=== PATIENT | female | born 1980 | race Two or more races ===

== ENCOUNTER 2016-07-22 05:07 | Emergency (ER) | payer OTHER ==
[2016-07-22] MEDS ORDERED: AMOX TR/POT CLAV 875MG/125MG TABLETS (FP) PO ONE (06:02)
[2016-07-22] MEDS ORDERED: DEXAMETHASONE SOD PHOSPHATE 10 MG/1 ML VIAL IM ONE (06:03)
[2016-07-22] MEDS ORDERED: IBUPROFEN 400 MG TABLET (FP) PO ONE (06:03)
[2016-07-22] MEDS ORDERED: OFLOXACIN 0.3% OPHTHALMIC SOLUTION 5 ML BOTTLE OU ONE (06:05)
[2016-07-22 06:10] VITALS: BP 137/100; PULSE 82; TEMP 98; BMI 35.9
--- NOTE | 2016-07-22 06:12 | PDOC ---
History of Present Illness - General Chief Complaint: Sore Throat Stated Complaint: PINK EYE, EAR PAIN, SORE THROAT Time Seen by Provider: 07/22/16 05:48 History Source: Patient Exam Limitations: No Limitations - History of Present Illness Initial Comments: 07/22/16 06:07 36yo Female patient presents to ED c/o bilateral ear pain, throat pain, pink eye , and fever which began Tuesday. Patient states fever high as 104.0, took Nyquil with minimal relief. Denies any other complaints at this time. Timing/Duration: other (3 days) Severity: moderate Modifying Factors: improves with: medication Associated Symptoms: denies: denies symptoms, chest pain, cough, diaphoresis, fever/chills, headaches, loss of appetite, malaise, nausea/vomiting, rash, seizure, shortness of breath, syncope, weakness, other Past History - Travel Traveled outside of the country in the last 30 days: No Close contact w/someone who was outside of country & ill: No - Past Medical History Allergies/Adverse Reactions: Allergies Allergy/AdvReac Type Severity Reaction Status Date / Time No Known Allergies Allergy Verified 07/17/15 10:26 Home Medications: Ambulatory Orders Amoxicillin/Potassium Clav [Augmentin 875-125 Tablet] 1 each PO BID #20 tablet 07/22/16 Ibuprofen [Motrin -] 600 mg PO Q6H PRN #20 tablet 07/22/16 Tramadol HCl 50 mg PO Q6H PRN #12 tablet MDD 4 tabs 07/22/16 - Psycho/Social/Smoking Cessation Hx Anxiety: No Suicidal Ideation: No Smoking Status: Yes Smoking History: Current every day smoker Number of Cigarettes Smoked Daily: 3 Cigars Per Day: 0 Hx Alcohol Use: No Drug/Substance Use Hx: No Substance Use Type: None Review of Systems - Review of Systems Able to Perform ROS?: Yes Is the patient limited Yoruba proficient: No Constitutional: Yes: Chills, Fever HEENTM: Yes: Ear Pain, Nose Congestion, Throat Pain, Other ([place]) Respiratory: No: Cough, Shortness of Breath Cardiac (ROS): No: Chest Pain ABD/GI: No: Diarrhea, Nausea, Vomiting : No: Burning, Dysuria, Flank Pain, Hematuria Musculoskeletal: No: Back Pain Integumentary: No: Pruritus, Rash Neurological: No: Headache, Numbness, Tingling All Other Systems: Reviewed and Negative *Physical Exam - Physical Exam General Appearance: Yes: Nourished, Appropriately Dressed, Moderate Distress HEENT: positive: EOMI, SAY, Normal Voice, Symmetrical, Pharynx Normal, TM Bulging, TM Erythema, Other (Injected Conjunctiva bilaterally w/o discharge or drainage.) Neck: positive: Trachea midline, Supple Respiratory/Chest: positive: Lungs Clear, Normal Breath Sounds Cardiovascular: positive: Regular Rhythm, Regular Rate Gastrointestinal/Abdominal: positive: Normal Bowel Sounds, Soft Musculoskeletal: positive: Normal Inspection. 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, Fully Oriented, Alert, Normal Mood/ Affect, Normal Response *DC/Admit/Observation/Transfer Diagnosis at time of Disposition: Otitis media Qualifiers: Otitis media type: serous Laterality: bilateral Chronicity: acute Recurrence: not specified Qualified Code(s): H65.03 - Acute serous otitis media, bilateral Conjunctivitis Qualifiers: Conjunctivitis type: serous Laterality: bilateral Qualified Code(s): H10.233 - Serous conjunctivitis, except viral, bilateral Pharyngitis Qualifiers: Pharyngitis/tonsillitis etiology: other specified organisms Qualified Code(s): J02.8 - Acute pharyngitis due to other specified organisms - Discharge Dispostion Disposition: HOME Condition at time of disposition: Stable Admit: No - Prescriptions Prescriptions: Amoxicillin/Potassium Clav [Augmentin 875-125 Tablet] 1 each PO BID #20 tablet Ibuprofen [Motrin -] 600 mg PO Q6H PRN #20 tablet PRN Reason: Mild Pain Tramadol HCl 50 mg PO Q6H PRN #12 tablet MDD 4 tabs PRN Reason: Severe Pain - Patient Instructions Printed Discharge Instructions: DI for Pharyngitis/Tonsillopharyngitis -- Adult , Ear Infections (Alternative Therapy), Middle Ear Infection, DI for Conjunctivitis Additional Instructions: Follow up with your primary care provider. Call to schedule appointment. Administer eye drops to both eyes, 2 drops to both eyes every 4 hours while awake x 2 days then 1 drop to both eyes every 4 hours while awake x 3 days. Do not share towels or washcloths. Motrin for fever, pain, and Tramadol for pain not relieved by Motrin. Take medications as prescribed. Return if symptoms worsen or any concerns for further evaluation. Print Language: GREENLANDIC
[2016-07-22] MEDS ORDERED: DEXAMETHASONE SOD PHOSPHATE 10 MG/1 ML VIAL ONE (06:16)
[2016-07-22] MEDS ORDERED: AMOX TR/POT CLAV 875MG/125MG TABLETS (FP) ONE (06:16)
[2016-07-22] MEDS ORDERED: IBUPROFEN 600 MG TABLET (FP) PO ONE (06:17)
[2016-07-22] MEDS ORDERED: CIPROFLOXACIN HCL 0.3% OPHTH 2.5ML BOTTLE ONE (06:24)
[2016-07-22] MEDS ORDERED: CIPROFLOXACIN 0.3% EYE DROPS 5 ML BOTTLE OU SCH (10:00)
== END 2016-07-22 06:30 | disposition home or self-care (01) ==
LOC: JER 05:07
DX: J02.9 Acute pharyngitis, unspecified (principal); H65.03 Acute serous otitis media, bilateral; H10.33 Unspecified acute conjunctivitis, bilateral
CPT/HCPCS: 99281-25

== ENCOUNTER 2016-10-16 09:48 | Emergency (ER) | payer OTHER ==
[2016-10-16 09:52] VITALS: BP 129/79; PULSE 88; TEMP 97.8; BMI 37.0
--- NOTE | 2016-10-16 09:57 | PDOC ---
History of Present Illness - General Chief Complaint: Sore Throat Stated Complaint: SORE THROAT Time Seen by Provider: 10/16/16 09:55 History Source: Patient Exam Limitations: No Limitations - History of Present Illness Initial Comments: CHIEF COMPLAINT: 36 y/o afebrile female with no significant PMH c/o sore throat with painful swallowing x 2 days. HISTORY OF PRESENT ILLNESS: The patient denies fever, chills, cough, runny nose , n/v/d, CP, SOB, abd pain. SHe has no sick contacts. She has been taking excedrin for her symptoms with little relief. Vital signs on arrival are within normal limits. REVIEW OF SYSTEMS: GENERAL/CONSTITUTIONAL: No fever/chills. No weakness. No weight change. HEAD, EYES, EARS, NOSE AND THROAT: No change in vision. No ear pain or discharge. +sore throat. CARDIOVASCULAR: No chest pain or shortness of breath. RESPIRATORY: No cough, wheezing, or hemoptysis. GASTROINTESTINAL: No abd pain, nausea, vomiting, diarrhea. GENITOURINARY: No dysuria, frequency, or change in urination. MUSCULOSKELETAL: No joint or muscle swelling or pain. No neck or back pain. SKIN: No rash or easy bruising. NEUROLOGIC: No headache, vertigo, loss of consciousness, or loss of sensation. . PHYSICAL EXAM: GENERAL: The patient is awake, alert, and fully oriented, in no acute distress. She appears uncomfortable. She is handling her own oral secretions without difficulty. HEAD: Normal with no signs of trauma. ENT: Pupils equal, round and reactive to light, extraocular movements intact, sclera anicteric, conjunctiva clear. Posterior pharyngeal erythema without tonsilar edema or exudate. Uvula midline. No soft/hard palate deformities. tender anterior cervical lymphadenopathy. LUNGS: Clear to auscultation bilaterally. Normal excursion. No respiratory distress or use of accessory muscles. CV: RRR, S1/S2, no MRG. Cap refill < 2 sec. ABDOMEN: Soft, non-distended, non-tender even to deep palpation, no hepatomegaly or splenomegaly, no masses. EXTREMITIES: Normal range of motion, no edema. NEUROLOGICAL: Normal speech, normal gait. CN II-XII grossly intact. PSYCH: Normal mood, normal affect. SKIN: Warm, dry, normal turgor, no rashes or lesions noted. Past History - Past Medical History Allergies/Adverse Reactions: Allergies Allergy/AdvReac Type Severity Reaction Status Date / Time No Known Allergies Allergy Verified 10/16/16 09:49 Home Medications: Ambulatory Orders NK [No Known Home Medication] 10/16/16 Other medical history: NONE - Psycho/Social/Smoking Cessation Hx Anxiety: No Suicidal Ideation: No Smoking Status: Yes Smoking History: Never smoked Have you smoked in the past 12 months: No Number of Cigarettes Smoked Daily: 3 Cigars Per Day: 0 Information on smoking cessation initiated: No Hx Alcohol Use: No Drug/Substance Use Hx: No Substance Use Type: None *Physical Exam - Vital Signs Last Vital Signs Temp Pulse Resp BP Pulse Ox 97.8 F 88 18 129/79 100 10/16/16 09:50 10/16/16 09:50 10/16/16 09:50 10/16/16 09:50 10/16/16 09:50 Medical Decision Making - Medical Decision Making A/P: 36 y/o female with sore throat and painful swallowing x 2 days. Plan is as follows: 1. Rapid strep 2. hcg hcg - negative IM Toradol Rapid Strep - negative Will discharge to home with dx of viral pharyngitis. Instructed the patient to take 600mg of OTC motrin every 6 hours for fever/sore throat, gargle with warm salt water, drink plenty of fluids and eat soft diet until symptoms improve. Instructed her to f/u with her doctor on Tuesday and return to the ER with any worsening or concerning symptoms. The patient verbalizes understanding of all instructions, has no further questions and is awaiting discharge. *DC/Admit/Observation/Transfer Diagnosis at time of Disposition: Pharyngitis Qualifiers: Pharyngitis/tonsillitis etiology: unspecified etiology Qualified Code(s): J02.9 - Acute pharyngitis, unspecified - Discharge Dispostion Disposition: HOME Condition at time of disposition: Good - Referrals Referrals: Mary Ellen Langley [Primary Care Provider] - Call tomorrow - Patient Instructions Printed Discharge Instructions: DI for Viral Pharyngitis Additional Instructions: Discharge Instructions: -Take 600mg of Over the Counter Ibuprofen every 6 hours for fever/throat pain -Gargle with warm salt water multiple times per day -Drink plenty of fluids -Eat soft foods until your throat pain improves -Call your doctor on Tuesday for follow up appointment -Return to the ER with any worsening or concerning symptoms
[2016-10-16] MEDS ORDERED: KETOROLAC TROMETHAMINE 60 MG/2 ML VIAL IM ONE (10:53)
[2016-10-16] MEDS ORDERED: KETOROLAC TROMETHAMINE 60 MG/2 ML VIAL ONE (11:06)
== END 2016-10-16 11:09 | disposition home or self-care (01) ==
LOC: JERFT 09:48
PROC: 3E0233Z Introduction of Anti-inflammatory into Muscle, Percutaneous Approach (ICD-10-PCS; principal; 2016-10-16)
DX: J02.9 Acute pharyngitis, unspecified (principal)
CPT/HCPCS: 84703; 87070; 87430; 96372; 99281-25

== ENCOUNTER 2017-04-03 13:58 | Emergency (ER) | payer OTHER ==
[2017-04-03 14:17] VITALS: BMI 38.0
[2017-04-03] MEDS ORDERED: SODIUM CHLORIDE 0.9% 1000 ML INFUS.BAG IV ONE (16:24)
--- NOTE | 2017-04-03 16:24 | PDOC ---
History of Present Illness - General Chief Complaint: Lightheaded Stated Complaint: BLURRY VISION Time Seen by Provider: 04/03/17 15:21 History Source: Patient Exam Limitations: No Limitations - History of Present Illness Initial Comments: 04/03/17 16:14 The patient is a 36F with a PMH migraines who presents to the ED with multiple complaints, all of which started Tuesday. The patient states that she has had blurry vision which she describes as a wavy/foggy appearance in her lower visual snowden b/l. She is also describing lightheadedness that started on Tuesday. She is also complaining of new garcia on her vagina and breasts which started Tuesday. Her PCP is at [facility]. LMP: on it now Soc: 5cigs/day, no drinking or drugs Past History - Past Medical History Allergies/Adverse Reactions: Allergies Allergy/AdvReac Type Severity Reaction Status Date / Time No Known Allergies Allergy Verified 04/03/17 14:13 Home Medications: Ambulatory Orders NK [No Known Home Medication] 10/16/16 Other medical history: none - Psycho/Social/Smoking Cessation Hx Anxiety: No Suicidal Ideation: No Smoking Status: Yes Smoking History: Current every day smoker Have you smoked in the past 12 months: Yes Number of Cigarettes Smoked Daily: 6 Cigars Per Day: 0 Information on smoking cessation initiated: Yes 'Breaking Loose' booklet given: 04/03/17 Hx Alcohol Use: No Drug/Substance Use Hx: No Substance Use Type: None Review of Systems - Review of Systems Able to Perform ROS?: Yes Is the patient limited Hungarian proficient: No Constitutional: No: Chills, Fever Respiratory: No: Cough, Shortness of Breath Cardiac (ROS): Yes: Chest Pain (pleuritic, retrosternal) ABD/GI: Yes: Nausea. No: Vomiting : No: Burning, Dysuria, Discharge Neurological: No: Headache, Numbness, Tingling, Weakness *Physical Exam - Vital Signs Last Vital Signs Temp Pulse Resp BP Pulse Ox 98.9 F 73 18 122/78 100 04/03/17 14:14 04/03/17 14:14 04/03/17 14:14 04/03/17 14:14 04/03/17 14:14 - Physical Exam General Appearance: Yes: Nourished, Appropriately Dressed, Obese HEENT: positive: Normal Voice, Hearing Grossly Normal Respiratory/Chest: positive: Lungs Clear, Normal Breath Sounds. negative: Chest Tender, Respiratory Distress, Accessory Muscle Use Cardiovascular: positive: Regular Rhythm, Regular Rate, S1, S2. negative: Diastolic Murmur, Systolic Murmur Gastrointestinal/Abdominal: positive: Flat, Soft. negative: Tender, Distended, Guarding, Rebound, Tenderness Musculoskeletal: negative: CVA Tenderness (R), CVA Tenderness (L) Integumentary: positive: Dry, Warm Neurologic: positive: Fully Oriented, Alert, Normal Mood/Affect, Motor Strength 11/19 ED Treatment Course - LABORATORY CBC & Chemistry Diagram: 04/03/17 16:30 04/03/17 16:30 Medical Decision Making - Medical Decision Making 04/03/17 16:48 The patient is a 36F with a PMH of migraines who presents to the ED with complaints of lightheadedness, nausea, and blurry vision. I am concerned for a new onset optic neuritis or MS. The patient did state that her visual symptoms have resolved after taking Excedrin migraine. I have highest suspicion for a complex migraine. I will reassess after labs return. 04/03/17 18:15 Labs WNL. Will reassess patient when liter of fluids is finished. 04/03/17 18:31 Patient states she is feeling better and is desiring to go home. I will put in d /c order. *DC/Admit/Observation/Transfer Diagnosis at time of Disposition: Lightheadedness - Discharge Dispostion Disposition: HOME Condition at time of disposition: Improved - Patient Instructions Additional Instructions: Please return to the ER if symptoms persist, worsen, or if new symptoms arise. Please follow up with your primary care doctor in 2-3 days.
[2017-04-03] MEDS ORDERED: ACETAMINOPHEN 1000 MG/100 ML VIAL (NON FORMULARY) IVPB ONE (16:25)
[2017-04-03] MEDS ORDERED: METOCLOPRAMIDE HCL INJECTION 10 MG/2 ML VIAL IVPB ONE (16:25)
[2017-04-03 16:36] LABS: BASOPHIL 0.4 % (0-2.0); EOSINOPHIL 0.8 % (0-4.5); MCH 31.1 pg (25.7-33.7); MCHC 34.4 g/dl (32.0-36.0); MEAN CELL VOLUME 90.3 fl (80-96); MEAN PLT VOLUME 8.8 fl (7.5-11.1); NEUTROPHILS 53.5 % (42.8-82.8); PLATELET COUNT 202 K/MM3 (134-434); RDW 14.5 % (11.6-15.6); WHITE BLOOD COUNT 7.6 K/mm3 (4.0-10.0)
--- NOTE | 2017-04-03 16:43 | PDOC ---
Attending Attestation - Resident Resident Name: [email or web address] - ED Attending Attestation I have performed the following: I have examined & evaluated the patient, The case was reviewed & discussed with the resident, I agree w/resident's findings & plan, Exceptions are as noted - HPI HPI: 04/03/17 18:32 36 yo female p/w headache and some vague chest discomfort - Physicial Exam PE: 04/03/17 18:33 WNWD 36 yo female in no acute distress HEENT- normocephalic, atraumatic. Eyes keke eomi/ear wnl/oropharynx no exudates Neck supple.no significant lymph nodes lungs cta b/l [id number] abd soft,nontender extremities no deformity skin warm,no rash neuro axox3,no ataxia,ambulating with ease - Medical Decision Making 04/03/17 18:42 pt's symptoms resolved/she states she has h/o headaches and had negative CT scans in the past/labs wnl discharge home. Pt encouraged to see neuro if her headaches become more frequent
[2017-04-03] MEDS ORDERED: ACETAMINOPHEN INJECTION 100 ML IVPB ONE (16:44)
[2017-04-03] MEDS ORDERED: METOCLOPRAMIDE HCL INJECTION 10 MG/2 ML VIAL ONE (16:44)
[2017-04-03 17:10] LABS: ALBUMIN 3.6 g/dl (3.4-5.0); ALK PHOS 59 U/L (45-117); ANION GAP 7 (8-16); BILIRUBIN,TOTAL 0.3 mg/dL (0.2-1.0); CALCIUM 8.6 mg/dL (8.5-10.1); CO2 26 mmol/L (21-32); CREATININE 0.5 mg/dL (0.55-1.02); GLUCOSE,RANDOM 88 mg/dL (74-106); SGOT/AST 12 U/L (15-37); SGPT/ALT 17 U/L (12-78); TOT PROT 6.7 g/dl (6.4-8.2)
[2017-04-03 17:46] VITALS: PULSE 70
[2017-04-03 18:47] VITALS: BP 118/75; TEMP 98
--- NOTE | 2017-04-04 13:57 | EKG ---
Test Reason : Blood Pressure : / mmHG Vent. Rate : 070 BPM Atrial Rate : 070 BPM P-R Int : 156 ms QRS Dur : 094 ms QT Int : 394 ms P-R-T Axes : 056 004 011 degrees QTc Int : 425 ms NORMAL SINUS RHYTHM POSSIBLE LEFT ATRIAL ENLARGEMENT LOW VOLTAGE QRS BORDERLINE ECG NO PREVIOUS ECGS AVAILABLE Confirmed by BRANDEN SLADE, ZEKE ([id number]) on 04/04/2017 1:56:51 PM Referred By: Confirmed By:ZEKE OTERO MD
== END 2017-04-03 18:49 | disposition home or self-care (01) ==
LOC: JER 13:58
PROC: 3E033NZ Introduction of Analgesics, Hypnotics, Sedatives into Peripheral Vein, Percutaneous Approach (ICD-10-PCS; principal; 2017-04-03)
PROC: 3E033GC Introduction of Other Therapeutic Substance into Peripheral Vein, Percutaneous Approach (ICD-10-PCS; 2017-04-03)
DX: R42 Dizziness and giddiness (principal); F17.210 Nicotine dependence, cigarettes, uncomplicated; Z86.69 Personal history of other diseases of the nervous system and sense organs
CPT/HCPCS: 36415; 80053; 84703; 85025; 93005; 93010; 96374; 96375; 99284-25

== ENCOUNTER 2017-11-24 04:14 | Emergency (ER) | payer OTHER ==
[2017-11-24 04:25] VITALS: BP 124/90; PULSE 79; BMI 32.2
[2017-11-24 04:34] LABS: HCG,QUALITATIVE URINE NEGATIVE; URINE APPEARANCE CLOUDY; URINE BILIRUBIN NEGATIVE (<2.0 mg/dL); URINE COLOR YELLOW; URINE GLUCOSE (UA) NEGATIVE (NEGATIVE); URINE KETONE TRACE (NEGATIVE); URINE LEUK ESTERASE 3+ (NEGATIVE); URINE NITRITE NEGATIVE (NEGATIVE); URINE PROTEIN 1+ (NEGATIVE); URINE UROBILINOGEN 4.0 E.U/dl mg/dL (0.2-1.0)
--- NOTE | 2017-11-24 05:02 | PDOC ---
History of Present Illness - General Chief Complaint: Rectal Bleed Stated Complaint: RECTAL BLEEDING Time Seen by Provider: 11/24/17 04:45 History Source: Patient, Old Records Exam Limitations: No Limitations - History of Present Illness Initial Comments: 11/24/17 04:57 37-year-old obese woman without significant past medical history presents emergency Department with 1 episode of bright red blood per rectum. Patient states there is no pain accompanied with this but does have a history of hemorrhoids. Patient similar episode in April 2015 which occurred after straining to move her bowels. Patient also reports dysuria. Patient denies any abdominal pain, straining when she moves her bowels, dizziness, lightheadedness , headaches. Past History - Past Medical History Allergies/Adverse Reactions: Allergies Allergy/AdvReac Type Severity Reaction Status Date / Time No Known Allergies Allergy Verified 11/24/17 04:22 Home Medications: Ambulatory Orders Cephalexin Monohydrate [Keflex -] 500 mg PO BID #10 capsule 11/24/17 COPD: No - Reproductive History (#): 4 Para: 3 - Suicide/Smoking/Psychosocial Hx Smoking Status: Yes Smoking History: Current every day smoker Have you smoked in the past 12 months: Yes Number of Cigarettes Smoked Daily: 6 Cigars Per Day: 0 Information on smoking cessation initiated: No 'Breaking Loose' booklet given: 04/03/17 Hx Alcohol Use: No Drug/Substance Use Hx: No Substance Use Type: None Review of Systems - Review of Systems Able to Perform ROS?: Yes Is the patient limited Slovenian proficient: No Constitutional: No: Symptoms Reported HEENTM: No: Symptoms Reported Respiratory: No: Symptoms reported Cardiac (ROS): No: Symptoms Reported ABD/GI: Yes: See HPI : Yes: See HPI Musculoskeletal: No: Symptoms Reported Integumentary: No: Symptoms Reported Neurological: No: Symptoms reported *Physical Exam - Vital Signs Last Vital Signs Temp Pulse Resp BP Pulse Ox 79 18 124/90 99 11/24/17 04:22 11/24/17 04:22 11/24/17 04:22 11/24/17 04:22 - Physical Exam General Appearance: Yes: Appropriately Dressed. No: Apparent Distress HEENT: positive: Normal ENT Inspection. negative: Pale Conjunctivae Neck: positive: Trachea midline, Supple Respiratory/Chest: positive: Lungs Clear, Normal Breath Sounds. negative: Respiratory Distress, Accessory Muscle Use Cardiovascular: positive: Regular Rhythm, Regular Rate, S1, S2. negative: Edema , Murmur Gastrointestinal/Abdominal: positive: Normal Bowel Sounds, Soft. negative: Tender Rectal Exam: positive: normal rectal tone, hemorrhoids (external) Musculoskeletal: positive: Normal Inspection. negative: CVA Tenderness Extremity: positive: Normal Inspection Integumentary: positive: Normal Color, Dry, Warm Neurologic: positive: Alert, Normal Response ED Treatment Course - LABORATORY CBC & Chemistry Diagram: 11/24/17 05:02 11/24/17 05:02 - ADDITIONAL ORDERS Additional order review: Laboratory Results 11/24/17 11/24/17 04:46 04:25 Urine Color Yellow Urine Appearance Cloudy Urine pH 5.0 D Ur Specific [place] 1.032 Urine Protein 1+ H Urine Glucose (UA) Negative Urine Ketones Trace H Urine Blood 2+ H Urine Nitrite Negative Urine Bilirubin Negative Urine Urobilinogen 4.0 e.u/dl H Ur Leukocyte Esterase 3+ H Urine HCG, Qual Negative Stool Occult Blood Positive Medical Decision Making - Medical Decision Making 11/24/17 05:00 A/P: 37-year-old woman with history of hemorrhoids presents with one episode of rectal bleeding tonight and dysuria Abdomen soft nontender nondistended Rectal exam reveals bright red blood on glove. External hemorrhoids noted. No palpable internal hemorrhoids noted. No anal fissures present Given benign abdominal exam this is likely her hemorrhoids bleeding. Her dysuria is likely not related to hemorrhoids I will send urine studies to evaluate the dysuria CBC, CMP, UA, urine , urine culture, IV access Reassess 11/24/17 05:19 11/24/17 06:11 H&H 13.1/37.5, platelets 212. INR 0.96. Urinalysis reveals urinary tract infection. Most likely this was patient's hemorrhoid was bleeding. I'll give referral for a ruffling hemmer automatic. I'll prescribe the patient Keflex 500 mg twice a day for 7 days. *DC/Admit/Observation/Transfer Diagnosis at time of Disposition: UTI (urinary tract infection) Qualifiers: Urinary tract infection type: site unspecified Hematuria presence: with hematuria Qualified Code(s): N39.0 - Urinary tract infection, site not specified ; R31.9 - Hematuria, unspecified; R31.9 - Hematuria, unspecified Hemorrhoids Qualifiers: Hemorrhoid type: unspecified Qualified Code(s): K64.9 - Unspecified hemorrhoids - Discharge Dispostion Disposition: HOME Condition at time of disposition: Stable Decision to Admit order: No - Prescriptions Prescriptions: Cephalexin Monohydrate [Keflex -] 500 mg PO BID #10 capsule - Referrals Referrals: Georgina Melgar MD [Staff Physician] - - Patient Instructions Printed Discharge Instructions: DI for Hemorrhoids Additional Instructions: Apply Tucks witch madelin pads and sitz bath as needed. You've been given a referral to Dr. Bryant a ruffling hemmer automatic. Please follow- up if she should have a colonoscopy performed in the near future. Take Keflex 500 mg twice a day for the next 7 days. Return to emergency department for any rectal bleeding, dizziness, lightheadedness, passing out, or any other concerns. - Post Discharge Activity Forms/Work/School Notes: Back to Work
[2017-11-24 05:16] LABS: BASO % 0.5 % (0-2.0); EOS % 1.2 % (0-4.5); HEMATOCRIT 37.5 % (32.4-45.2); HEMOGLOBIN 13.1 GM/dL (10.7-15.3); LYMPH % 25.9 % (8-40); MCH 31.8 pg (25.7-33.7); MCHC 34.8 g/dl (32.0-36.0); MEAN CELL VOLUME 91.5 fl (80-96); MEAN PLT VOLUME 9.2 fl (7.5-11.1); NEUT % 67.4 % (42.8-82.8); PLATELET COUNT 212 K/MM3 (134-434); RDW 14.7 % (11.6-15.6); WHITE BLOOD COUNT 8.7 K/mm3 (4.0-10.0)
--- NOTE | 2017-11-24 05:16 | PDOC ---
*Physical Exam - Vital Signs Last Vital Signs Temp Pulse Resp BP Pulse Ox 79 18 124/90 99 11/24/17 04:22 11/24/17 04:22 11/24/17 04:22 11/24/17 04:22 ED Treatment Course - LABORATORY CBC & Chemistry Diagram: 11/24/17 05:02 11/24/17 05:02 - ADDITIONAL ORDERS Additional order review: Laboratory Results 11/24/17 11/24/17 04:46 04:25 Urine Color Yellow Urine Appearance Cloudy Urine pH 5.0 D Ur Specific [place] 1.032 Urine Protein 1+ H Urine Glucose (UA) Negative Urine Ketones Trace H Urine Blood 2+ H Urine Nitrite Negative Urine Bilirubin Negative Urine Urobilinogen 4.0 e.u/dl H Ur Leukocyte Esterase 3+ H Urine HCG, Qual Negative Stool Occult Blood Positive Medical Decision Making - Medical Decision Making 11/24/17 05:15 agree with sanjeev Lin *DC/Admit/Observation/Transfer Diagnosis at time of Disposition: UTI (urinary tract infection), Hemorrhoids - Discharge Dispostion Disposition: HOME Condition at time of disposition: Stable - Prescriptions Prescriptions: Cephalexin Monohydrate [Keflex -] 500 mg PO BID #10 capsule - Referrals Referrals: Georgina Melgar MD [Staff Physician] - - Patient Instructions Printed Discharge Instructions: DI for Hemorrhoids Additional Instructions: Apply Tucks witch madelin pads and sitz bath as needed. You've been given a referral to Dr. Bryant a nutritionalist. Please follow- up if she should have a colonoscopy performed in the near future. Take Keflex 500 mg twice a day for the next 7 days. Return to emergency department for any rectal bleeding, dizziness, lightheadedness, passing out, or any other concerns. - Post Discharge Activity Forms/Work/School Notes: Back to Work
[2017-11-24 05:20] LABS: CALCIUM OXALATE CRYSTALS RARE /hpf (NONE SEEN); EPI CELLS FEW /HPF (FEW); URINE BACTERIA RARE /hpf (NONE SEEN); URINE MUCUS MODERATE
[2017-11-24 05:26] LABS: INR 0.96 (0.82-1.09); PROTHROMBIN TIME (PATIENT) 10.8 SEC (9.7-13.0)
[2017-11-24 05:40] LABS: ALBUMIN 3.7 g/dl (3.4-5.0); ALK PHOS 63 U/L (45-117); ANION GAP 4 (8-16); BILIRUBIN,TOTAL 0.1 mg/dL (0.2-1.0); BLOOD UREA NITROGEN 12 mg/dL (7-18); CALCIUM 8.3 mg/dL (8.5-10.1); CHLORIDE 110 mmol/L (98-107); CO2 26 mmol/L (21-32); CREATININE 0.6 mg/dL (0.55-1.02); GLUCOSE,RANDOM 98 mg/dL (74-106); POTASSIUM 4.1 mmol/L (3.5-5.1); SGOT/AST 12 U/L (15-37); SGPT/ALT 15 U/L (12-78); SODIUM 140 mmol/L (136-145); TOT PROT 7.1 g/dl (6.4-8.2)
== END 2017-11-24 06:23 | disposition home or self-care (01) ==
LOC: JER 04:14
DX: N39.0 Urinary tract infection, site not specified (principal); R31.9 Hematuria, unspecified; K64.9 Unspecified hemorrhoids
CPT/HCPCS: 36415; 80053; 81003; 81015; 82272; 84703; 85025; 85610; 86850; 86900; 86901; 87086; 99282-25

== ENCOUNTER 2018-03-11 13:46 | Emergency (ER) | payer OTHER ==
[2018-03-11 13:54] VITALS: BMI 39.0
--- NOTE | 2018-03-11 14:37 | PDOC ---
History of Present Illness - General Chief Complaint: Pain Stated Complaint: ABDOMINAL PAIN Time Seen by Provider: 03/11/18 13:57 - History of Present Illness Initial Comments: 03/11/18 14:39 Patient is a 37 year old female with no reported PMH who presents to our ED c/o a rash and fever. Patient first noticed the rash day before yesterday. Rash associated with a burning pain. Fever of 102 this morning prompted her to come to the ED. Denies any outdoor or toxic exposure. 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 Patient lives in a basement apartment with her three children. No similar symptoms in her family. Patient denies chest pain, shortness of breath, abdominal pain, nausea/vomiting , diarrhea/constipation, dysuria/hematuria. NKDA Surgical: denies Social: denies toxic habits PMD: none, will refer to IM resident clinic Past History - Past Medical History Allergies/Adverse Reactions: Allergies Allergy/AdvReac Type Severity Reaction Status Date / Time No Known Allergies Allergy Verified 11/24/17 04:22 Home Medications: Ambulatory Orders Doxycycline Hyclate 100 mg PO BID 10 Days #20 tablet 03/11/18 COPD: No - Reproductive History (#): 4 Para: 3 - Suicide/Smoking/Psychosocial Hx Smoking Status: Yes Smoking History: Current every day smoker Have you smoked in the past 12 months: Yes Number of Cigarettes Smoked Daily: 6 Cigars Per Day: 0 Information on smoking cessation initiated: Yes 'Breaking Loose' booklet given: 03/11/18 Hx Alcohol Use: No Drug/Substance Use Hx: No Substance Use Type: None Review of Systems - Review of Systems Constitutional: Yes: Fever. No: Chills HEENTM: No: Blurred Vision, Double Vision Respiratory: No: Cough, Shortness of Breath Cardiac (ROS): No: Chest Pain, Lightheadedness, Palpitations, Syncope ABD/GI: No: Constipated, Diarrhea, Vomiting *Physical Exam - Vital Signs Last Vital Signs Temp Pulse Resp BP Pulse Ox 98.3 F 85 16 130/69 100 03/11/18 13:51 03/11/18 13:51 03/11/18 13:51 03/11/18 13:51 03/11/18 13:51 - Physical Exam General Appearance: Yes: Nourished, Appropriately Dressed HEENT: positive: Normal Voice, Sinus Tenderness Neck: positive: Trachea midline, Supple Respiratory/Chest: positive: Lungs Clear, Normal Breath Sounds. negative: Crackles, Rales, Stridor Cardiovascular: positive: S1, S2 Vascular Pulses: Dorsalis-Pedis (R): 2+, Doralis-Pedis (L): 2+ Gastrointestinal/Abdominal: positive: Normal Bowel Sounds, Soft. negative: Distended, Guarding, Tenderness, Hernia, Mass Musculoskeletal: negative: CVA Tenderness (R), CVA Tenderness (L) Extremity: positive: Normal Capillary Refill, Normal Inspection Integumentary: positive: Dry, Warm, Other (2 cm erythematous area on L lateral flank with 4 excoriations) Neurologic: positive: Fully Oriented, Alert ED Treatment Course - LABORATORY CBC & Chemistry Diagram: 03/11/18 15:00 03/11/18 15:00 Medical Decision Making - Medical Decision Making 03/11/18 15:54 37 year old female presents with painful rash. H/o fever prior presentation. VS unremarkable @ presentation. PE significant for tender, erythematous rash w/ overlying excorations on L flank. Clinical suspicion for insect, possibly tick bite. Also consider zoster ("burning" pain however fever makes this less likely ) as well as scabies. CBC negative for leukocytosis indicating active infection. Lyme titers pending. UA 1+ blood likely 2/2 to menses. Will treat for presumed insect bite and discharge home with return precautions. Patient counseled on limiting sun exposure w/Doxycycline and instructed to return to ED for any exacerbation of her SiSx. I discussed the physical exam findings, ancillary test results and final diagnoses with the patient. I answered all of the patient's questions. The patient was satisfied with the care received and felt comfortable with the discharge plan and treatment plan. The patient will return to the Emergency Department with any new, persistent or worsening symptoms. *DC/Admit/Observation/Transfer Diagnosis at time of Disposition: Rash - Discharge Dispostion Disposition: HOME Condition at time of disposition: Good Decision to Admit order: No - Prescriptions Prescriptions: Doxycycline Hyclate 100 mg PO BID 10 Days #20 tablet - Referrals Referrals: [facility] [place] [facility] [place] [Provider Group] - Patient Instructions Printed Discharge Instructions: DI for Insect Bites and Stings Additional Instructions: You were evaluated today for a rash. We have prescribed an antibiotic. Please complete the entire antibiotic course. Limit your sun exposure while taking this medication. Follow up with your primary care doctor in the next 2-3 days. Should you be unable to see your primary care doctor, a referral has been provided to you. You can take Tylenol (up for 4000 mg daily) for fever. Return to the Emergency Department for any new/worsening/concerning symptoms including high fevers, severe pain. - Post Discharge Activity
[2018-03-11 15:28] LABS: BASO % 0.6 % (0-2.0); EOS % 0.2 % (0-4.5); HEMATOCRIT 36.7 % (32.4-45.2); HEMOGLOBIN 12.2 GM/dL (10.7-15.3); LYMPH % 29.5 % (8-40); MCH 30.5 pg (25.7-33.7); MCHC 33.2 g/dl (32.0-36.0); MEAN CELL VOLUME 91.9 fl (80-96); MEAN PLT VOLUME 9.3 fl (7.5-11.1); MONO % 8.6 % (3.8-10.2); NEUT % 61.1 % (42.8-82.8); PLATELET COUNT 244 K/MM3 (134-434); RBC 3.99 M/mm3 (3.60-5.2); RDW 14.1 % (11.6-15.6); WHITE BLOOD COUNT 5.7 K/mm3 (4.0-10.0)
[2018-03-11 15:31] LABS: URINE APPEARANCE SLCLOUDY; URINE BILIRUBIN NEGATIVE (<2.0 mg/dL); URINE COLOR YELLOW; URINE GLUCOSE (UA) NEGATIVE (NEGATIVE); URINE KETONE 1+ (NEGATIVE); URINE LEUK ESTERASE NEGATIVE (NEGATIVE); URINE NITRITE NEGATIVE (NEGATIVE); URINE PROTEIN NEGATIVE (NEGATIVE); URINE UROBILINOGEN NEGATIVE mg/dL (0.2-1.0)
--- NOTE | 2018-03-11 15:46 | PDOC ---
Attending Attestation - Resident Resident Name: Beatrice Russell - ED Attending Attestation I have performed the following: I have examined & evaluated the patient, The case was reviewed & discussed with the resident, I agree w/resident's findings & plan, Exceptions are as noted - HPI HPI: 03/11/18 15:41 37-year-old female no past medical history who today complaining of a rash to her left flank area. Patient states she woke up this morning and noticed a burning when she is taking a shower sensibly noticed a small erythematous area approximately 1 cm x 1 cm with some central redness on the left flank she has been having bumps in her groin area and in the inframammary region for some time. Did also today have a fever of 101 denies any known exposure to any bug bites no known animal bites no cough no myalgia no urinary symptoms no other current complaints no vesicular-like lesions or no recent travel took tylenol before coming to the ed. 03/11/18 15:55 - Physicial Exam PE: 03/11/18 15:44 Awake alert no acute distress lungs are clear bilaterally heart is regular 20 murmurs rubs or gallops abdomen is soft nontender skin there is a small 1.5 x 1 cm area in the left flank with small urinary erythema there is a central red scabbed punctate excoriated area there is a small 1 cm we'll on the left anterior stomach in the inframammary region there is some small maculopapular lesions similar to a folliculitis pattern no excoriation skin is all else clear - Medical Decision Making 03/11/18 15:45 Differential includes folliculitis, and early zoster however there are no vesicular lesions, bug bite or other insect bite, However the rash is appeared to be a erythema migrans. Plan CBC CMP and blood cultures due to the fact the patient has a fever will likely treat for folliculitis will treat with doxycycline should be Lyme's titer be positive she will be covered follow-up with dermatology after referral
[2018-03-11 15:47] LABS: EPI CELLS MODERATE /HPF (FEW); URINE BACTERIA RARE /hpf (NONE SEEN); URINE MUCUS MODERATE
[2018-03-11 15:51] LABS: ALBUMIN 3.8 g/dl (3.4-5.0); ANION GAP 7 MMOL/L (8-16); BILIRUBIN,TOTAL 0.5 mg/dL (0.2-1.0); BLOOD UREA NITROGEN 6 mg/dL (7-18); CALCIUM 8.9 mg/dL (8.5-10.1); CHLORIDE 108 mmol/L (98-107); CO2 25 mmol/L (21-32); CREATININE 0.5 mg/dL (0.55-1.02); GLUCOSE,RANDOM 82 mg/dL (74-106); POTASSIUM 3.7 mmol/L (3.5-5.1); SGOT/AST 15 U/L (15-37); SGPT/ALT 18 U/L (12-78); SODIUM 140 mmol/L (136-145); TOT PROT 7.2 g/dl (6.4-8.2)
[2018-03-11 15:53] LABS: ALK PHOS 66 U/L (45-117)
[2018-03-11 16:21] VITALS: BP 115/78; PULSE 68; TEMP 98.7
== END 2018-03-11 16:21 | disposition home or self-care (01) ==
LOC: JER 13:46
DX: R21 Rash and other nonspecific skin eruption (principal)
CPT/HCPCS: 36415; 80053; 81003; 81015; 85025; 86618; 87040; 87086; 99282-25

== ENCOUNTER 2018-05-05 09:27 | Emergency (ER) | payer OTHER ==
[2018-05-05 09:35] VITALS: BP 132/85; PULSE 87; TEMP 99; BMI 40.3
--- NOTE | 2018-05-05 10:11 | PDOC ---
History of Present Illness - General Chief Complaint: Vaginal Bleeding Stated Complaint: ABD PAIN Time Seen by Provider: 05/05/18 09:44 History Source: Patient Exam Limitations: No Limitations - History of Present Illness Initial Comments: 37 yo presents with vag bleeding, positive test at home. She states her last period was 04/08/18. She took a test this morning when she noticed spotting and was having pelvic cramping. She has history of 2 prior abortions, 3 uncomplicated pregnancies that went to term. Denies nausea, vomiting. Past History - Past Medical History Allergies/Adverse Reactions: Allergies Allergy/AdvReac Type Severity Reaction Status Date / Time No Known Allergies Allergy Verified 05/07/18 14:17 Home Medications: Ambulatory Orders NK [No Known Home Medication] 05/05/18 COPD: No - Reproductive History Is Patient Now?: Yes (#): 4 Para: 3 Cervical CA: No Dysfunctional Uterine Bleeding: No Ectopic : No Endometrial CA: No Polycystic Ovaries: Yes Therapeutic (s) & number: Yes (2) Tubal Ligation: No - Immunization History Immunization Up to Date: Yes - Suicide/Smoking/Psychosocial Hx Smoking Status: Yes Smoking History: Unknown if ever smoked Have you smoked in the past 12 months: Yes Number of Cigarettes Smoked Daily: 6 Cigars Per Day: 0 'Breaking Loose' booklet given: 03/11/18 Hx Alcohol Use: No Drug/Substance Use Hx: No Substance Use Type: None Review of Systems - Review of Systems Able to Perform ROS?: Yes Comments:: GENERAL/CONSTITUTIONAL: No fever or chills. No weakness. HEAD, EYES, EARS, NOSE AND THROAT: No change in vision. No ear pain or discharge. No sore throat. CARDIOVASCULAR: No chest pain or shortness of breath. RESPIRATORY: No cough, wheezing, or hemoptysis. GASTROINTESTINAL: No nausea, vomiting, diarrhea or constipation. GENITOURINARY: No dysuria, frequency, or change in urination. +Vag bleeding and cramping. MUSCULOSKELETAL: No joint or muscle swelling or pain. No neck or back pain. SKIN: No rash NEUROLOGIC: No headache, vertigo, loss of consciousness, or change in strength/ sensation. ENDOCRINE: No increased thirst. No abnormal weight change. HEMATOLOGIC/LYMPHATIC: No anemia, easy bleeding, or history of blood clots. ALLERGIC/IMMUNOLOGIC: No hives or skin allergy. *Physical Exam - Vital Signs Last Vital Signs Temp Pulse Resp BP Pulse Ox 99.0 F 87 18 132/85 100 05/05/18 09:32 05/05/18 09:32 05/05/18 09:32 05/05/18 09:32 05/05/18 09:32 - Physical Exam Comments: GENERAL: Awake, alert, and fully oriented, in no acute distress HEAD: No signs of trauma EYES: PERRLA, EOMI, sclera anicteric, conjunctiva clear ENT: Auricles normal inspection, hearing grossly normal, nares patent, oropharynx clear without exudates. Moist mucosa NECK: Normal ROM, supple, no lymphadenopathy, JVD, or masses LUNGS: Breath sounds equal, clear to auscultation bilaterally. No wheezes, and no crackles HEART: Regular rate and rhythm, normal S1 and S2, no murmurs, rubs or gallops ABDOMEN: Soft, nontender, normoactive bowel sounds. No guarding, no rebound. No masses EXTREMITIES: Normal range of motion, no edema. No clubbing or cyanosis. No cords, erythema, or tenderness NEUROLOGICAL: Cranial nerves II through XII grossly intact. Normal speech, normal gait SKIN: Warm, Dry, normal turgor, no rashes or lesions noted. : No external lesions. +Trace maroon blood in the vault. Os closed. +Mild R adnexal tenderness. ED Treatment Course - LABORATORY CBC & Chemistry Diagram: 05/05/18 09:44 05/05/18 09:53 Medical Decision Making - Medical Decision Making 05/05/18 14:11 Sono and lab results discussed with patient. B-HCG is extremely low, which would indicate likely miscarriage. However, patient will need to return in 2 days, as this could be very early , and need to make sure that B-HCG is trending down. I explained that ectopic is always a possibility and stressed the importance of returning for repeat B-HCG. *DC/Admit/Observation/Transfer Diagnosis at time of Disposition: Threatened miscarriage - Discharge Dispostion Disposition: HOME Condition at time of disposition: Stable Decision to Admit order: No - Referrals - Patient Instructions Printed Discharge Instructions: DI for Threatened Additional Instructions: PLEASE RETURN TO THE ER IN 2 DAYS TO HAVE BLOODWORK REPEATED, IT IS IMPORTANT TO KNOW IF YOUR LEVEL IS GOING UP OR DOWN. IF YOU HAVE HEAVY BLEEDING, WEAKNESS, LIGHTHEADEDNESS, OR SEVERE PAIN, RETURN TO THE ER IMMEDIATELY. - Post Discharge Activity Forms/Work/School Notes: Back to Work
[2018-05-05 10:13] LABS: URINE APPEARANCE CLOUDY; URINE BILIRUBIN NEGATIVE (<2.0 mg/dL); URINE GLUCOSE (UA) NEGATIVE (NEGATIVE); URINE KETONE NEGATIVE (NEGATIVE); URINE LEUK ESTERASE TRACE (NEGATIVE); URINE NITRITE NEGATIVE (NEGATIVE); URINE PROTEIN 2+ (NEGATIVE); URINE UROBILINOGEN NEGATIVE mg/dL (0.2-1.0)
[2018-05-05 10:18] LABS: BASO % 0.8 % (0-2.0); EOS % 0.4 % (0-4.5); HEMATOCRIT 37.9 % (32.4-45.2); HEMOGLOBIN 12.3 GM/dL (10.7-15.3); LYMPH % 26.3 % (8-40); MCH 28.9 pg (25.7-33.7); MCHC 32.3 g/dl (32.0-36.0); MEAN CELL VOLUME 89.5 fl (80-96); MEAN PLT VOLUME 9.2 fl (7.5-11.1); MONO % 5.3 % (3.8-10.2); NEUT % 67.2 % (42.8-82.8); PLATELET COUNT 244 K/MM3 (134-434); RBC 4.24 M/mm3 (3.60-5.2); RDW 14.8 % (11.6-15.6); WHITE BLOOD COUNT 7.2 K/mm3 (4.0-10.0)
[2018-05-05 10:19] LABS: URINE COLOR YELLOW
[2018-05-05 10:21] LABS: EPI CELLS MANY /HPF (FEW); URINE MUCUS MANY
[2018-05-05 10:36] LABS: ALBUMIN 3.7 g/dl (3.4-5.0); ALK PHOS 61 U/L (45-117); ANION GAP 7 MMOL/L (8-16); BILIRUBIN,TOTAL 0.1 mg/dL (0.2-1); BLOOD UREA NITROGEN 8 mg/dL (7-18); CALCIUM 8.6 mg/dL (8.5-10.1); CHLORIDE 110 mmol/L (98-107); CO2 24 mmol/L (21-32); CREATININE 0.5 mg/dL (0.55-1.3); GLUCOSE,RANDOM 106 mg/dL (74-106); POTASSIUM 3.8 mmol/L (3.5-5.1); SGOT/AST 13 U/L (15-37); SGPT/ALT 18 U/L (13-61); SODIUM 142 mmol/L (136-145); TOT PROT 7.2 g/dl (6.4-8.2)
== END 2018-05-05 14:15 | disposition home or self-care (01) ==
LOC: JER 09:27
DX: O26.891 Other specified pregnancy related conditions, first trimester (principal); O20.0 Threatened abortion; Z3A.01 Less than 8 weeks gestation of pregnancy
CPT/HCPCS: 36415; 76817-TC; 80053; 81003; 81015; 84702; 85025; 86850; 86900; 86901; 99283-25

== ENCOUNTER 2018-10-16 17:15 | Emergency (ER) | payer OTHER ==
[2018-10-16 17:19] VITALS: BP 138/84; PULSE 110; TEMP 98.4; BMI 39.0
--- NOTE | 2018-10-16 17:19 | PDOC ---
Rapid Medical Evaluation Time Seen by Provider: 10/16/18 17:16 Medical Evaluation: Allergies Allergy/AdvReac Type Severity Reaction Status Date / Time No Known Allergies Allergy Verified 05/07/18 14:17 10/16/18 17:17 I have performed a brief in-person evaluation of this patient The patient present with a chief complaint of: lower abdominal pain x 3 days. Also reports burning with urination STates urine appears red. Denies fever, chills or flank pain Pertinent physical exam findings: nad even and unlabored breathing Gu: mid suprapubis pain, -cva tenderness I have ordered the following: urine , urinalysis The patient will proceed to the ED for further evaluation. Discharge Disposition - Diagnosis Dysuria - Referrals - Patient Instructions - Post Discharge Activity
--- NOTE | 2018-10-16 18:24 | PDOC ---
History of Present Illness - General Chief Complaint: Urinary Problem Stated Complaint: ABD PAIN Time Seen by Provider: 10/16/18 17:16 - History of Present Illness Initial Comments: 10/16/18 18:22 38-year-old female without comorbidities presents for evaluation of 3 days of dysuria without systemic symptoms. She states she was diagnosed with the urinary tract infection a month or so ago was given antibiotics but never completed the course she does not know the name of the antibiotic she was given. Past History - Past Medical History Allergies/Adverse Reactions: Allergies Allergy/AdvReac Type Severity Reaction Status Date / Time No Known Allergies Allergy Verified 05/07/18 14:17 Home Medications: Ambulatory Orders Nitrofurantoin Monohyd/M-Cryst [Macrobid -] 100 mg PO BID #14 capsule 10/16/18 COPD: No - Reproductive History (#): 4 Para: 3 Cervical CA: No Dysfunctional Uterine Bleeding: No Ectopic : No Endometrial CA: No Polycystic Ovaries: Yes Therapeutic (s) & number: Yes (2) Tubal Ligation: No - Immunization History Immunization Up to Date: Yes - Suicide/Smoking/Psychosocial Hx Smoking Status: Yes Smoking History: Unknown if ever smoked Have you smoked in the past 12 months: Yes Number of Cigarettes Smoked Daily: 6 Cigars Per Day: 0 'Breaking Loose' booklet given: 03/11/18 Hx Alcohol Use: No Drug/Substance Use Hx: No Substance Use Type: None Review of Systems - Review of Systems Constitutional: No: Fever : Yes: Burning, Dysuria, Frequency *Physical Exam - Vital Signs Last Vital Signs Temp Pulse Resp BP Pulse Ox 98.4 F 110 H 20 138/84 99 10/16/18 17:17 10/16/18 17:17 10/16/18 17:17 10/16/18 17:17 10/16/18 17:17 - Physical Exam Comments: 10/16/18 18:23 HEAD: NC/AT EYES: Conjuntiva clear MS: Full ROM in all joints without edema NEUROLOGIC: No gross sensory or motor deficits, NVID SKIN: Normal color and temperature no lesions or rashes PELVIC Defered Medical Decision Making - Medical Decision Making 10/16/18 19:43 will treat for UTI *DC/Admit/Observation/Transfer Diagnosis at time of Disposition: Dysuria, UTI (urinary tract infection) - Discharge Dispostion Disposition: HOME Condition at time of disposition: Stable Decision to Admit order: No - Referrals Referrals: Faustina Murdock MD [Staff Physician] - - Patient Instructions Printed Discharge Instructions: Urinary Tract Infection, DI for Urinary Tract Infection (UTI) Additional Instructions: Return to the emergency room for worsening symptoms. Please take and finish all the antibiotics as directed. Follow-up with [facility] for further evaluation and treatment options of urinary tract infection. - Post Discharge Activity
[2018-10-16 19:37] LABS: URINE APPEARANCE Clear; URINE BILIRUBIN Negative (NEGATIVE); URINE COLOR Yellow; URINE GLUCOSE (UA) Negative (NEGATIVE); URINE KETONE Negative (NEGATIVE); URINE LEUK ESTERASE 2+ (NEGATIVE); URINE NITRITE Negative (NEGATIVE); URINE PROTEIN Negative (NEGATIVE); URINE UROBILINOGEN 0.2 mg/dL (0.2-1.0)
[2018-10-16 21:55] LABS: URINE BACTERIA 2+ /hpf (NEGATIVE)
== END 2018-10-16 19:59 | disposition home or self-care (01) ==
LOC: JERFT 17:15
DX: N39.0 Urinary tract infection, site not specified (principal)
CPT/HCPCS: 81003; 84703; 87077; 87086; 99281-25

== ENCOUNTER 2019-03-10 15:56 | Emergency (ER) | payer OTHER ==
[2019-03-10 16:02] VITALS: BMI 29.0
[2019-03-10] MEDS ORDERED: KETOROLAC TROMETHAMINE 60 MG/2 ML VIAL IM ONE (18:02)
[2019-03-10] MEDS ORDERED: LIDOCAINE 5% TOPICAL PATCH TP ONE (18:02)
[2019-03-10] MEDS ORDERED: diazePAM 5 MG TABLET PO ONE (18:02)
[2019-03-10] MEDS ORDERED: KETOROLAC TROMETHAMINE 60 MG/2 ML VIAL ONE (18:40)
[2019-03-10] MEDS ORDERED: diazePAM 5 MG TABLET ONE (18:41)
[2019-03-10] MEDS ORDERED: LIDOCAINE 5% TOPICAL PATCH ONE (18:41)
[2019-03-10 18:56] LABS: EPI CELLS 6.2 /HPF (0-5/HPF); HYALINE CASTS 8 /lpf (0-8); URINE APPEARANCE CLEAR; URINE BACTERIA 332.3 /hpf (NEGATIVE); URINE BILIRUBIN NEGATIVE (NEGATIVE); URINE COLOR YELLOW; URINE GLUCOSE (UA) NEGATIVE (NEGATIVE); URINE KETONE NEGATIVE (NEGATIVE); URINE LEUK ESTERASE NEGATIVE (NEGATIVE); URINE NITRITE NEGATIVE (NEGATIVE); URINE PROTEIN NEGATIVE (NEGATIVE); URINE RBC 9 /hpf (0-4); URINE UROBILINOGEN 0.2 mg/dL (0.2-1.0); URINE WBC 7 /hpf (0-5)
[2019-03-10 19:47] LABS: BASO % 0.5 % (0-2.0); HEMATOCRIT 34.3 % (32.4-45.2); HEMOGLOBIN 11.5 GM/dL (10.7-15.3); LYMPH % 38.4 % (8-40); MCH 28.1 pg (25.7-33.7); MCHC 33.4 g/dl (32.0-36.0); MEAN CELL VOLUME 84.2 fl (80-96); MONO % 5.9 % (3.8-10.2); NEUT % 54.2 % (42.8-82.8); RBC 4.08 M/mm3 (3.60-5.2); RDW 18.4 % (11.6-15.6); WHITE BLOOD COUNT 7.1 K/mm3 (4.0-10.0)
--- NOTE | 2019-03-10 19:54 | PDOC ---
History of Present Illness - General Chief Complaint: Pain Stated Complaint: ABD PAIN/ LOWER BACK PAIN Time Seen by Provider: 03/10/19 17:45 History Source: Patient Exam Limitations: No Limitations - History of Present Illness Initial Comments: 03/10/19 19:47 Patient is a 38-year-old female with past medical history here with complaint of bilateral back pain 3 days. States she was a state of health at work when she just had sudden onset of bilateral back pain radiating to the front abdomen and then down the back of both legs. She describes the pain as "someone punching me in the back", sharp, 10/10 and worse with movement. She denies any injury to the back, heavy lifting, pushing or pulling. She took Tylenol last dose was 10:30 PM last night without relief of symptoms. No prior episode of this pain, No Bowel or bladder incontinence. Currently on control shots last dose was December. PMD: Since [facility] PMHX: as above PSOCHX: (+) cig 6/day ALL: NKDA GENERAL/CONSTITUTIONAL: No fever or chills. No weakness. No weight change. HEAD, EYES, EARS, NOSE AND THROAT: No change in vision. No ear pain or discharge. No sore throat. CARDIOVASCULAR: No chest pain or shortness of breath. RESPIRATORY: No cough, wheezing, or hemoptysis. GASTROINTESTINAL: No nausea, vomiting, diarrhea or constipation. No rectal bleeding. GENITOURINARY: No dysuria, frequency, or change in urination. MUSCULOSKELETAL: No joint or muscle swelling or pain. No neck (+) back pain. SKIN AND BREASTS: No rash or easy bruising. NEUROLOGIC: No headache, vertigo, loss of consciousness, or loss of sensation. PSYCHIATRIC: No depression or anxiety. ENDOCRINE: No increased thirst. No abnormal weight change. HEMATOLOGIC/LYMPHATIC: No anemia, easy bleeding, or history of blood clots. ALLERGIC/IMMUNOLOGIC: No hives or skin allergy. No latex allergy. GENERAL: The patient is awake, alert, and fully oriented, in moderate painful distress. HEAD: Normal with no signs of trauma. EYES: Pupils equal, round and reactive to light, extraocular movements intact, sclera anicteric, conjunctiva clear. ENT: Ears normal, nares patent, oropharynx clear without exudates. Moist mucous membranes. NECK: Normal range of motion, supple without lymphadenopathy, JVD, or masses. LUNGS: Breath sounds equal, clear to auscultation bilaterally. No wheezes, and no crackles. HEART: Regular rate and rhythm, normal S1 and S2 without murmur, rub. ABDOMEN: Soft, (+) tenderness to the lower abdomen, normoactive bowel sounds. No guarding, no rebound. No masses. EXTREMITIES: Normal range of motion, no edema. No clubbing or cyanosis. No cords, erythema, or tenderness. BACK: Bilateral paraspinal and midline tenderness lumbar, NEUROLOGICAL: Cranial nerves II through XII grossly intact. Normal speech, antalgic gait, 5/5 strength PSYCH: Normal mood, normal affect. SKIN: Warm, Dry, normal turgor, no rashes or lesions noted. Past History - Past Medical History Allergies/Adverse Reactions: Allergies Allergy/AdvReac Type Severity Reaction Status Date / Time No Known Allergies Allergy Verified 03/10/19 16:02 Home Medications: Ambulatory Orders Cyclobenzaprine HCl [Flexeril -] 10 mg PO TID #21 tablet 03/10/19 Ibuprofen [Motrin -] 600 mg PO QID #28 tablet 03/10/19 COPD: No - Reproductive History (#): 4 Para: 3 Cervical CA: No Dysfunctional Uterine Bleeding: No Ectopic : No Endometrial CA: No Polycystic Ovaries: Yes Therapeutic (s) & number: Yes (2) Tubal Ligation: No - Immunization History Immunization Up to Date: Yes - Suicide/Smoking/Psychosocial Hx Smoking Status: Yes Smoking History: Current every day smoker Have you smoked in the past 12 months: Yes Number of Cigarettes Smoked Daily: 7 Cigars Per Day: 0 Information on smoking cessation initiated: No 'Breaking Loose' booklet given: 03/11/18 Hx Alcohol Use: No Drug/Substance Use Hx: No Substance Use Type: None *Physical Exam - Vital Signs Last Vital Signs Temp Pulse Resp BP Pulse Ox 98.5 F 72 18 128/78 100 03/10/19 15:58 03/10/19 15:58 03/10/19 15:58 03/10/19 15:58 03/10/19 15:58 ED Treatment Course - LABORATORY CBC & Chemistry Diagram: 03/10/19 19:18 03/10/19 19:18 - ADDITIONAL ORDERS Additional order review: Laboratory Results 03/10/19 03/10/19 18:20 18:20 Urine Color Yellow Urine Appearance Clear Urine pH 6.0 Ur Specific [place] 1.023 Urine Protein Negative Urine Glucose (UA) Negative Urine Ketones Negative Urine Blood 1+ H Urine Nitrite Negative Urine Bilirubin Negative Urine Urobilinogen 0.2 Ur Leukocyte Esterase Negative Urine WBC (Auto) 7 Urine RBC (Auto) 9 Urine Casts (Auto) 8 U Epithel Cells (Auto) 6.2 Urine Bacteria (Auto) 332.3 Urine HCG, Qual Negative - RADIOLOGY Radiology Studies Ordered: Category Date Time Status ABDOMEN & PELVIS CT W/O CONTR [CT] Stat CT Scan 03/10/19 19:[address] W/O CONTRAST [CT] Stat CT Scan 03/10/19 19:45 Ordered - Medications Given in the ED: ED Medications Discontinued Medications Generic Name Dose Route Start Last Admin Trade Name Freq PRN Reason Stop Dose Admin Diazepam 5 mg 03/10/19 18:02 03/10/19 18:59 Valium - PO 03/10/19 18:03 5 mg ONCE ONE Administration Ketorolac Tromethamine 60 mg 03/10/19 18:02 03/10/19 18:59 Toradol Injection - IM 03/10/19 18:03 60 mg ONCE ONE Administration Lidocaine 1 patch 03/10/19 18:02 03/10/19 18:59 Lidoderm Patch - TP 03/10/19 18:03 1 patch ONCE ONE Administration Medical Decision Making - Medical Decision Making 03/10/19 19:47 Patient is a 38-year-old female with past medical history here with complaint of bilateral back pain 3 days. States she was a state of health at work when she just had sudden onset of bilateral back pain radiating to the front abdomen and then down the back of both legs. She describes the pain as "someone punching me in the back", sharp, 10/10 and worse with movement. She denies any injury to the back, heavy lifting, pushing or pulling. She took Tylenol last dose was 10:30 PM last night without relief of symptoms. No prior episode of this pain, No Bowel or bladder incontinence. Currently on control shots last dose was December. Symptoms consistent with musculoskeletal pain/spasm, R/O UTI, renal colic. Low concerns for cauda equina Will get a UA, Pain meds, Reassess. Laboratory Tests 03/10/19 03/10/19 18:20 18:20 Urine Color Yellow Urine Appearance Clear Urine pH 6.0 Ur Specific [place] 1.023 Urine Protein Negative Urine Glucose (UA) Negative Urine Ketones Negative Urine Blood 1+ H Urine Nitrite Negative Urine Bilirubin Negative Urine Urobilinogen 0.2 Ur Leukocyte Esterase Negative Urine WBC (Auto) 7 Urine RBC (Auto) 9 Urine Casts (Auto) 8 U Epithel Cells (Auto) 6.2 Urine Bacteria (Auto) 332.3 Urine HCG, Qual Negative Urine reviewed, currently on her period however has blood in the urine was sent for CT of abdomen and pelvis, which reformatted of the lumbar spine. Patient states still has pain but improved. 03/10/19 21:20 IMAGES: 645 EXAM: ABDOMEN \\T\\ PELVIS CT W/O CONTR History: 38-year-old female with flank pain, hematuria, back pain Comparison: None Procedure: CT scan abdomen and pelvis; stone protocol, dated March 10, 2019 . Axial images obtained followed by coronal and sagittal reconstructions. Study performed unenhanced. Findings: Indeterminate 8 mm hypodensity centrally in the liver. Otherwise the unenhanced liver, spleen, pancreas, and adrenal glands are unremarkable. Gallbladder and gallbladder fossa normal in appearance. No intrarenal calculi identified. No stranding present either perinephric space. No evidence of right or left-sided hydronephrosis or proximal hydroureter. The intrapelvic portions of both ureters not well visualized due to paucity of retroperitoneal fat. There are several calcifications noted right and left side of the pelvis thought to represent venous phleboliths. No soft tissue halo identified with these calcifications however one new phlebolith noted adjacent to the distal right ureter. No bladder calculi evident. Uterus anteverted in position. No adnexal masses appreciated. Rectum and perirectal space unremarkable. No inflammatory changes of the large or small bowel identified. Terminal ileum and appendix within normal limits. No free intraperitoneal air or fluid identified. No abdominal wall defects noted. Abdominal aorta/branch vessels/IVC normal in configuration. Impression: 1. Limited CT scan abdomen and pelvis, unenhanced. 2. No obvious urinary tract calculi or obstruction identified. Procedure: CT scan L Spine, dated March 10, 2019 . Axial images obtained followed by coronal and sagittal reconstructions. Study performed unenhanced. Findings: No acute fracture or dislocation to the lumbar spine identified. No diastases to the sacral iliac joints evident. No paraspinal soft tissue masses appreciated. No obvious extradural defects identified with this noncontrast CT scan evaluation. Impression: No evidence of acute lumbar spine fracture or dislocation. One or more of the following dose reduction techniques were used: automated exposure control, adjustment of the mA and/or kV according to patient size, use of iterative reconstructive technique. THIS DOCUMENT HAS BEEN ELECTRONICALLY SIGNED Baldomero Fields MD 03/10/2019 21:15 EST M.D. Please call [facility] [phone] ([phone]) with questions. INTERPRETING RADIOLOGIST: Baldomero Fields MD Electronically Signed: Mar 10, 2019 09:16PM EDT I discussed the physical exam findings, ancillary test results and final diagnoses with the patient. I answered all of the patient's questions. The patient was satisfied with the care received and felt comfortable with the discharge plan and treatment plan. The Patient agrees to follow up with the primary care physician within 24-72 hours. *DC/Admit/Observation/Transfer Diagnosis at time of Disposition: Back pain Qualifiers: Back pain location: back pain in unspecified location Chronicity: acute Back pain laterality: bilateral Qualified Code(s): M54.9 - Dorsalgia, unspecified - Discharge Dispostion Disposition: HOME Condition at time of disposition: Stable - Prescriptions Prescriptions: Cyclobenzaprine HCl [Flexeril -] 10 mg PO TID #21 tablet Ibuprofen [Motrin -] 600 mg PO QID #28 tablet - Referrals Referrals: Mary Ellen Langley [Primary Care Provider] - - Patient Instructions Printed Discharge Instructions: DI for Low Back Pain Additional Instructions: Your Discharge Instructions: You must call primary care physician within 24 hours to arrange follow-up. Return to the Emergency Department with any new, persistent or worsening symptoms, for fever, chills, SOB, dizziness or any other concerning changes that may occur. Take Tylenol every 4 hours and Motrin every 6 hours for at least 24-48 hours for your acute pain. Muscle Relaxants will be sent to your pharmacy. Her urine culture is pending, if it is positive he will be called and antibx will be prescribed for you. - Post Discharge Activity Forms/Work/School Notes: Back to Work
[2019-03-10 20:02] LABS: PLATELET COUNT 297 K/MM3 (134-434)
[2019-03-10 20:09] LABS: BLOOD UREA NITROGEN 8.3 mg/dL (7-18); CALCIUM 8.9 mg/dL (8.5-10.1); CREATININE 0.6 mg/dL (0.55-1.3); POTASSIUM 3.9 mmol/L (3.5-5.1)
[2019-03-10] MEDS ORDERED: IBUPROFEN 600 MG TABLET (FP) PO ONE ×2 (21:32→21:46)
[2019-03-10] MEDS ORDERED: CYCLOBENZAPRINE HCL 10 MG TABLET (FP) PO ONE (21:32)
[2019-03-10] MEDS ORDERED: CYCLOBENZAPRINE HCL 10 MG TABLET (FP) ONE (21:46)
[2019-03-10] MEDS ORDERED: LIDOCAINE PATCH REMOVAL MC SCH (22:00)
[2019-03-11 07:24] VITALS: BP 114/77; PULSE 73; TEMP 98
== END 2019-03-10 21:55 | disposition home or self-care (01) ==
LOC: JER 15:56
PROC: 3E0233Z Introduction of Anti-inflammatory into Muscle, Percutaneous Approach (ICD-10-PCS; principal; 2019-03-10)
DX: M54.89 Other dorsalgia (principal)
CPT/HCPCS: 36415; 72131-TC; 74176-TC; 80048; 81003; 84703; 85025; 87086; 96372; 99283-25

== ENCOUNTER 2021-09-22 09:03 | Emergency (ER) | payer OTHER ==
[2021-09-22 09:19] VITALS: BP 130/88; PULSE 81; TEMP 99.5; BMI 40.6
== END 2021-09-22 10:23 | disposition home or self-care (01) ==
LOC: JER 09:03
DX: B00.1 Herpesviral vesicular dermatitis (principal)
CPT/HCPCS: 99281-25

== ENCOUNTER 2021-11-24 14:56 | Emergency (ER) | payer OTHER ==
[2021-11-24 15:18] VITALS: BP 119/85; PULSE 78; TEMP 98.2; BMI 39.6
[2021-11-24] MEDS ORDERED: IBUPROFEN 600 MG TABLET (FP) PO ONE ×2 (16:06→16:07)
[2021-11-24] MEDS ORDERED: DIPHTH,PERTUSS(ACELL),TET 0.5 ML DISP.SYRIN IM ONE ×2 (16:06→16:08)
== END 2021-11-24 16:24 | disposition home or self-care (01) ==
LOC: JERFT 14:56 → JER 14:56 → JERFT 16:24
PROC: 0HQ0XZZ Repair Scalp Skin, External Approach (ICD-10-PCS; principal; 2021-11-24)
PROC: 3E0234Z Introduction of Serum, Toxoid and Vaccine into Muscle, Percutaneous Approach (ICD-10-PCS; 2021-11-24)
DX: S01.01XA Laceration without foreign body of scalp, initial encounter (principal); W22.8XXA Striking against or struck by other objects, initial encounter
CPT/HCPCS: 12001-25; 90471; 90715; 99283-25

== ENCOUNTER 2021-12-01 11:53 | Emergency (ER) | payer OTHER ==
[2021-12-01 11:58] VITALS: BP 110/74; PULSE 82; TEMP 98.7; BMI 33.9
== END 2021-12-01 14:02 | disposition home or self-care (01) ==
LOC: JERFT 11:53
DX: Z48.02 Encounter for removal of sutures (principal)
CPT/HCPCS: 99281-25

== ENCOUNTER 2022-01-24 04:58 | Emergency (ER) | payer OTHER ==
[2022-01-24 05:31] VITALS: TEMP 97.7; BMI 33.0
[2022-01-24] MEDS ORDERED: KETOROLAC TROMETHAMINE 15 MG/ML VIAL IVPUSH ONE (06:08)
[2022-01-24] MEDS ORDERED: ONDANSETRON 4 MG/2 ML VIAL IVPUSH ONE (06:08)
[2022-01-24] MEDS ORDERED: LACTATED RINGERS SOLUTION 1000 ML INFUS.BAG IV ONE (06:10)
[2022-01-24] MEDS ORDERED: ONDANSETRON 4 MG/2 ML VIAL ONE (06:20)
[2022-01-24] MEDS ORDERED: KETOROLAC TROMETHAMINE 30 MG/1 ML VIAL ONE (06:20)
[2022-01-24] MEDS ORDERED: ACETAMINOPHEN INJECTION 100 ML IVPB ONE (06:20)
[2022-01-24] MEDS: ACETAMINOPHEN 1000 MG/100 ML BAG IVPB ONE ×2 (06:36→07:54)
[2022-01-24] MEDS ORDERED: ACETAMINOPHEN 1000 MG/100 ML BAG IVPB ONE (07:30)
[2022-01-24 08:19] LABS: BLOOD UREA NITROGEN 15.4 mg/dL (7-18); CALCIUM 9.1 mg/dL (8.5-10.1)
[2022-01-24 08:22] LABS: BASO % 0.4 % (0-2.0); CREATININE 0.7 mg/dL (0.55-1.3); EOS % 0.4 % (0-4.5); HEMATOCRIT 38.4 % (32.4-45.2); LYMPH % 19.8 % (8-40); MCH 30.9 pg (25.7-33.7); MEAN CELL VOLUME 90.9 fl (80-96); MEAN PLT VOLUME 9.7 fl (7.5-11.1); MONO % 6.7 % (3.8-10.2); NEUT % 72.7 % (42.8-82.8); PLATELET COUNT 269 10^3/uL (134-434); RBC 4.22 M/mm3 (3.60-5.2); RDW 15.5 % (11.6-15.6); WHITE BLOOD COUNT 8.9 K/mm3 (4.0-10.0)
[2022-01-24 08:24] LABS: BILIRUBIN,TOTAL 0.3 mg/dL (0.2-1); TOT PROT 7.8 g/dl (6.4-8.2)
[2022-01-24 08:33] LABS: EPI CELLS >36 /uL (0-25.1); HYALINE CASTS 11 /uL (0-3.1); PH,URINE 5.5 (5.0-8.0); URINE APPEARANCE TURBID; URINE BACTERIA 519 /uL (0-1359); URINE BILIRUBIN 1+ (NEGATIVE); URINE COLOR DK YELLOW; URINE GLUCOSE (UA) NEGATIVE (NEGATIVE); URINE KETONE TRACE (NEGATIVE); URINE LEUK ESTERASE NEGATIVE (NEGATIVE); URINE NITRITE NEGATIVE (NEGATIVE); URINE PROTEIN 2+ (NEGATIVE); URINE RBC 54 /uL (0-23.9); URINE WBC 16 /uL (0-25.8)
[2022-01-24 09:09] LABS: HCG,QUALITATIVE URINE NEGATIVE
[2022-01-24 10:34] LABS: EPI CELLS 12 /uL (0-25.1); HCG,QUALITATIVE URINE Negative; HYALINE CASTS 0 /uL (0-3.1); URINE APPEARANCE CLOUDY; URINE BACTERIA 126 /uL (0-1359); URINE BILIRUBIN NEGATIVE (NEGATIVE); URINE COLOR YELLOW; URINE GLUCOSE (UA) NEGATIVE (NEGATIVE); URINE KETONE TRACE (NEGATIVE); URINE LEUK ESTERASE NEGATIVE (NEGATIVE); URINE NITRITE NEGATIVE (NEGATIVE); URINE PROTEIN 1+ (NEGATIVE); URINE RBC 1004 /uL (0-23.9); URINE WBC 17 /uL (0-25.8)
[2022-01-24 11:43] VITALS: BP 116/74; PULSE 55
== END 2022-01-24 11:35 | disposition home or self-care (01) ==
LOC: JER 04:58
PROC: 3E0333Z Introduction of Anti-inflammatory into Peripheral Vein, Percutaneous Approach (ICD-10-PCS; principal; 2022-01-24)
PROC: 3E0333Z Introduction of Anti-inflammatory into Peripheral Vein, Percutaneous Approach (ICD-10-PCS; 2022-01-24)
PROC: 3E033GC Introduction of Other Therapeutic Substance into Peripheral Vein, Percutaneous Approach (ICD-10-PCS; 2022-01-24)
DX: R30.0 Dysuria (principal); R10.9 Unspecified abdominal pain
CPT/HCPCS: 0241U-QW; 36415; 74176-TC; 80053; 81003; 83690; 84703; 85025; 86850; 86900; 86901; 87086; 99285-25

== ENCOUNTER 2022-01-28 10:56 | Emergency (ER) | payer OTHER ==
[2022-01-28 11:35] VITALS: BP 111/74; PULSE 69; TEMP 98.1; BMI 38.7
[2022-01-28] MEDS ORDERED: KETOROLAC TROMETHAMINE 30 MG/1 ML VIAL IVPUSH ONE (12:25)
[2022-01-28] MEDS ORDERED: ONDANSETRON 4 MG/2 ML VIAL IVPUSH ONE (12:25)
[2022-01-28] MEDS ORDERED: KETOROLAC TROMETHAMINE 30 MG/1 ML VIAL ONE (12:45)
[2022-01-28] MEDS ORDERED: ONDANSETRON 4 MG/2 ML VIAL ONE (12:45)
[2022-01-28] MEDS ORDERED: SODIUM CHLORIDE 0.9% 500 ML INFUS.BAG IV ONE (12:53)
[2022-01-28 13:30] LABS: BASO % 0.3 % (0-2.0); EOS % 0.2 % (0-4.5); HEMATOCRIT 38.9 % (32.4-45.2); HEMOGLOBIN 13.1 GM/dL (10.7-15.3); LYMPH % 38.5 % (8-40); MCH 30.5 pg (25.7-33.7); MCHC 33.7 g/dl (32.0-36.0); MEAN CELL VOLUME 90.6 fl (80-96); MEAN PLT VOLUME 9.1 fl (7.5-11.1); MONO % 7.5 % (3.8-10.2); NEUT % 53.5 % (42.8-82.8); PLATELET COUNT 240 10^3/uL (134-434); RDW 15.1 % (11.6-15.6); WHITE BLOOD COUNT 5.7 K/mm3 (4.0-10.0)
[2022-01-28 13:34] LABS: PH,URINE 7.5 (5.0-8.0); URINE APPEARANCE CLEAR; URINE BILIRUBIN NEGATIVE (NEGATIVE); URINE COLOR YELLOW; URINE GLUCOSE (UA) NEGATIVE (NEGATIVE); URINE KETONE NEGATIVE (NEGATIVE); URINE LEUK ESTERASE NEGATIVE (NEGATIVE); URINE NITRITE NEGATIVE (NEGATIVE); URINE PROTEIN NEGATIVE (NEGATIVE); URINE UROBILINOGEN 0.2 mg/dL (0.2-1.0)
[2022-01-28 13:51] LABS: ALBUMIN 3.9 g/dl (3.4-5.0); BLOOD UREA NITROGEN 9.3 mg/dL (7-18); MAGNESIUM 2.3 mg/dL (1.8-2.4)
[2022-01-28 13:55] LABS: CREATININE 0.6 mg/dL (0.55-1.3); PHOSPHOROUS 3.9 mg/dL (2.5-4.9)
[2022-01-28 13:57] LABS: BILIRUBIN,TOTAL 0.2 mg/dL (0.2-1); TOT PROT 7.4 g/dl (6.4-8.2)
[2022-01-28 14:40] LABS: HCG,QUALITATIVE URINE Negative
== END 2022-01-28 17:05 | disposition home or self-care (01) ==
LOC: JER 10:56
PROC: 3E0333Z Introduction of Anti-inflammatory into Peripheral Vein, Percutaneous Approach (ICD-10-PCS; principal; 2022-01-28)
PROC: 3E033GC Introduction of Other Therapeutic Substance into Peripheral Vein, Percutaneous Approach (ICD-10-PCS; 2022-01-28)
DX: R10.12 Left upper quadrant pain (principal)
CPT/HCPCS: 36415; 74177-TC; 80053; 81003; 83690; 83735; 84100; 84703; 85025; 87086; 99285-25; Q9967

== ENCOUNTER 2022-08-25 14:28 | Emergency (ER) | payer OTHER ==
[2022-08-25 14:36] VITALS: BP 128/86; PULSE 96; RESP 18; TEMP 97.8; BMI 27.4
[2022-08-25] MEDS ORDERED: SODIUM CHLORIDE 0.9% 500 ML INFUS.BAG IV ONE (15:24)
[2022-08-25] MEDS ORDERED: FAMOTIDINE 20 MG/50 ML IVPB 20 MG/50 ML MG IVPB ONE ×2 (15:25→15:29)
[2022-08-25] MEDS ORDERED: KETOROLAC TROMETHAMINE 30 MG/1 ML VIAL IVPUSH ONE (15:25)
[2022-08-25] MEDS ORDERED: KETOROLAC TROMETHAMINE 30 MG/1 ML VIAL ONE (15:29)
[2022-08-25 15:58] LABS: BASO % 0.3 % (0-2.0); EOS % 0.9 % (0-4.5); HEMATOCRIT 38.9 % (32.4-45.2); HEMOGLOBIN 13.1 GM/dL (10.7-15.3); LYMPH % 34.5 % (8-40); MCH 31.3 pg (25.7-33.7); MCHC 33.8 g/dl (32.0-36.0); MEAN CELL VOLUME 92.8 fl (80-96); MEAN PLT VOLUME 9.1 fl (7.5-11.1); MONO % 7.3 % (3.8-10.2); PLATELET COUNT 213 10^3/uL (134-434); RDW 14.5 % (11.6-15.6); WHITE BLOOD COUNT 5.6 K/mm3 (4.0-10.0)
[2022-08-25 16:02] LABS: HCG,QUALITATIVE URINE Negative
[2022-08-25 16:03] LABS: EPI CELLS >36 /uL (0-25.1); HYALINE CASTS 1 /uL (0-3.1); PH,URINE 5.5 (5.0-8.0); URINE APPEARANCE CLEAR; URINE BACTERIA 722 /uL (0-1359); URINE BILIRUBIN NEGATIVE (NEGATIVE); URINE COLOR YELLOW; URINE GLUCOSE (UA) NEGATIVE (NEGATIVE); URINE KETONE NEGATIVE (NEGATIVE); URINE LEUK ESTERASE TRACE (NEGATIVE); URINE NITRITE NEGATIVE (NEGATIVE); URINE PROTEIN NEGATIVE (NEGATIVE); URINE RBC 65 /uL (0-23.9); URINE UROBILINOGEN 0.2 mg/dL (0.2-1.0); URINE WBC 22 /uL (0-25.8)
[2022-08-25 16:05] LABS: INR 1.08 (0.83-1.09); PROTHROMBIN TIME (PATIENT) 12.5 SEC (9.7-13.0)
[2022-08-25 16:08] LABS: ACTIVATED PTT 30.4 SECONDS (25.2-36.5)
[2022-08-25 16:16] LABS: CALCIUM 8.7 mg/dL (8.5-10.1)
[2022-08-25 16:17] LABS: ALBUMIN 3.8 g/dl (3.4-5.0); BLOOD UREA NITROGEN 7.8 mg/dL (7-18)
[2022-08-25 16:20] LABS: CREATININE 0.6 mg/dL (0.55-1.3)
[2022-08-25 16:21] LABS: BILIRUBIN,TOTAL 0.5 mg/dL (0.2-1); TOT PROT 7.4 g/dl (6.4-8.2)
== END 2022-08-25 20:19 | disposition home or self-care (01) ==
LOC: JERFT 14:28 → JER 14:28 → JERFT 20:19
PROC: 3E033GC Introduction of Other Therapeutic Substance into Peripheral Vein, Percutaneous Approach (ICD-10-PCS; principal; 2022-08-25)
PROC: 3E0333Z Introduction of Anti-inflammatory into Peripheral Vein, Percutaneous Approach (ICD-10-PCS; 2022-08-25)
DX: R11.2 Nausea with vomiting, unspecified (principal); R10.11 Right upper quadrant pain
CPT/HCPCS: 36415; 76705-TC; 80053; 81003; 82272; 84703; 85025; 85610; 85730; 86850; 86900; 86901; 87086; 99284-25

== ENCOUNTER 2022-10-22 08:52 | Emergency (ER) | payer OTHER ==
[2022-10-22 08:55] VITALS: RESP 18; TEMP 98.4; BMI 33.7
[2022-10-22] MEDS ORDERED: FAMOTIDINE 20 MG/50 ML IVPB 20 MG/50 ML MG IVPB ONE (09:08)
[2022-10-22] MEDS ORDERED: ACETAMINOPHEN 1000 MG/100 ML BAG IVPB ONE (09:08)
[2022-10-22] MEDS ORDERED: LACTATED RINGERS SOLUTION 1000 ML INFUS.BAG IV ONE (09:08)
[2022-10-22] MEDS ORDERED: MAG HYDROX/AL HYDROX/SIMETH 30 ML UNIT-DOSE CUP PO ONE (09:08)
[2022-10-22] MEDS ORDERED: ONDANSETRON 4 MG/2 ML VIAL IVPUSH ONE (09:12)
[2022-10-22] MEDS ORDERED: MAG HYDROX/AL HYDROX/SIMETH 30 ML UNIT-DOSE CUP ONE (09:21)
[2022-10-22] MEDS ORDERED: ONDANSETRON 4 MG/2 ML VIAL ONE (09:21)
[2022-10-22 09:50] LABS: PH,URINE 6.5 (5.0-8.0); URINE APPEARANCE CLEAR; URINE BILIRUBIN NEGATIVE (NEGATIVE); URINE COLOR YELLOW; URINE GLUCOSE (UA) NEGATIVE (NEGATIVE); URINE KETONE NEGATIVE (NEGATIVE); URINE LEUK ESTERASE NEGATIVE (NEGATIVE); URINE NITRITE NEGATIVE (NEGATIVE); URINE PROTEIN TRACE (NEGATIVE)
[2022-10-22 09:51] LABS: BASO % 0.6 % (0-2.0); EOS % 0.6 % (0-4.5); HEMATOCRIT 38.4 % (32.4-45.2); HEMOGLOBIN 13.2 GM/dL (10.7-15.3); LYMPH % 27.4 % (8-40); MCH 31.3 pg (25.7-33.7); MCHC 34.3 g/dl (32.0-36.0); MEAN PLT VOLUME 8.8 fl (7.5-11.1); MONO % 8.7 % (3.8-10.2); NEUT % 62.7 % (42.8-82.8); PLATELET COUNT 256 10^3/uL (134-434); RBC 4.22 M/mm3 (3.60-5.2); RDW 14.7 % (11.6-15.6); WHITE BLOOD COUNT 5.5 K/mm3 (4.0-10.0)
[2022-10-22 09:53] LABS: HCG,QUALITATIVE URINE Negative
[2022-10-22 10:10] LABS: ALBUMIN 3.7 g/dl (3.4-5.0); BLOOD UREA NITROGEN 11.4 mg/dL (7-18); CALCIUM 8.9 mg/dL (8.5-10.1)
[2022-10-22 10:13] LABS: CREATININE 0.7 mg/dL (0.55-1.3)
[2022-10-22 10:15] LABS: BILIRUBIN,TOTAL 0.5 mg/dL (0.2-1); TOT PROT 7.3 g/dl (6.4-8.2)
[2022-10-22 12:12] VITALS: BP 120/85; PULSE 70
== END 2022-10-22 12:12 | disposition home or self-care (01) ==
LOC: JER 08:52
PROC: 3E033GC Introduction of Other Therapeutic Substance into Peripheral Vein, Percutaneous Approach (ICD-10-PCS; principal; 2022-10-22)
DX: R10.13 Epigastric pain (principal)
CPT/HCPCS: 36415; 71046-TC-FY; 80053; 81003; 83690; 84484; 84703; 85025; 87086; 93005; 93010; 99285-25; C9803-CS; U0003; U0005

== ENCOUNTER 2023-02-17 14:25 | Emergency (ER) | payer OTHER ==
[2023-02-17 14:38] VITALS: BMI 34.9
[2023-02-17] MEDS ORDERED: ACETAMINOPHEN 1000 MG/100 ML BAG IVPB ONE (15:53)
[2023-02-17] MEDS ORDERED: ACETAMINOPHEN INJECTION 100 ML IVPB ONE (16:39)
[2023-02-17 16:42] LABS: BASO % 0.4 % (0-2.0); EOS % 0.5 % (0-4.5); HEMATOCRIT 36.6 % (32.4-45.2); HEMOGLOBIN 12.4 GM/dL (10.7-15.3); LYMPH % 33.4 % (8-40); MCH 30.7 pg (25.7-33.7); MEAN CELL VOLUME 90.2 fl (80-96); MEAN PLT VOLUME 9.2 fl (7.5-11.1); MONO % 7.1 % (3.8-10.2); NEUT % 58.6 % (42.8-82.8); PLATELET COUNT 264 10^3/uL (134-434); RBC 4.05 M/mm3 (3.60-5.2); RDW 15.2 % (11.6-15.6); WHITE BLOOD COUNT 7.1 K/mm3 (4.0-10.0)
[2023-02-17 17:00] LABS: CHLORIDE 106 mmol/L (98-107); POTASSIUM 3.5 mmol/L (3.5-5.1); SODIUM 140 mmol/L (136-145)
[2023-02-17 17:03] LABS: ALBUMIN 3.5 g/dl (3.4-5.0); ANION GAP 9 MMOL/L (8-16); BLOOD UREA NITROGEN 6.9 mg/dL (7-18); CO2 25 mmol/L (21-32); GLUCOSE,RANDOM 85 mg/dL (74-106)
[2023-02-17 17:06] LABS: CREATININE 0.6 mg/dL (0.55-1.3); SGOT/AST 19 U/L (15-37); SGPT/ALT 23 U/L (13-61)
[2023-02-17 17:08] LABS: BILIRUBIN,TOTAL 0.3 mg/dL (0.2-1)
[2023-02-17 17:09] LABS: ALK PHOS 69 U/L (45-117)
[2023-02-17 17:25] LABS: EPI CELLS >36 /uL (0-25.1); HYALINE CASTS 4 /uL (0-3.1); PH,URINE 5.5 (5.0-8.0); URINE APPEARANCE CLOUDY; URINE BACTERIA 36 /uL (0-1359); URINE BILIRUBIN 1+ (NEGATIVE); URINE COLOR ORANGE; URINE GLUCOSE (UA) NEGATIVE (NEGATIVE); URINE KETONE NEGATIVE (NEGATIVE); URINE LEUK ESTERASE TRACE (NEGATIVE); URINE NITRITE NEGATIVE (NEGATIVE); URINE PROTEIN 3+ (NEGATIVE); URINE RBC 1064 /uL (0-23.9); URINE WBC 68 /uL (0-25.8)
[2023-02-17 17:37] LABS: HCG,QUALITATIVE URINE Negative
[2023-02-17 20:21] VITALS: BP 122/78; PULSE 87; RESP 19; TEMP 98.6
== END 2023-02-17 20:21 | disposition home or self-care (01) ==
LOC: JER 14:25
PROC: 3E033NZ Introduction of Analgesics, Hypnotics, Sedatives into Peripheral Vein, Percutaneous Approach (ICD-10-PCS; principal; 2023-02-17)
DX: N93.9 Abnormal uterine and vaginal bleeding, unspecified (principal); N83.9 Noninflammatory disorder of ovary, fallopian tube and broad ligament, unspecified; R10.9 Unspecified abdominal pain
CPT/HCPCS: 36415; 76830-TC; 80053; 81003; 84702; 84703; 85025; 86850; 86900; 86901; 87081; 87086; 93005; 93010; 99285-25

== ENCOUNTER 2024-08-14 07:02 | Emergency (ER) | payer OTHER ==
[2024-08-14 07:11] VITALS: BP 112/82; PULSE 96; RESP 18; TEMP 99.5; BMI 29.0
[2024-08-14 12:31] LABS: HIV INTERPRETATION NEGATIVE (NEGATIVE)
== END 2024-08-14 09:06 | disposition home or self-care (01) ==
LOC: JER 07:02 → JERFT 07:02
DX: U07.1 COVID-19 (principal); R50.9 Fever, unspecified; R09.81 Nasal congestion; R05.9 Cough, unspecified
CPT/HCPCS: 0241U-QW; 36415; 86803; 87389; 99283-25